=== PATIENT | female | born 1945 | race Caucasian/White ===

== ENCOUNTER 2018-05-01 16:58 | Inpatient (IN) | payer MEDICARE, BC ==
[2018-05-01] MEDS ORDERED: Morphine 2 MG/ML Syringe IVPUSH PRN (17:38)
[2018-05-01] MEDS ORDERED: Sodium Chloride 0.9% 10 ML Syringe FLUSH PRN (17:38)
[2018-05-01] MEDS ORDERED: Sodium Chloride 0.9% 2.5 ML Syringe FLUSH PRN (17:38)
[2018-05-01] MEDS ORDERED: Albuterol/Ipratropium 3.0-0.5 MG/3 ML Neb Soln NEB PRN (17:38)
[2018-05-01] MEDS: Pantoprazole 40 MG Vial IVPUSH SCH ×2 (18:08→20:52)
[2018-05-01 20:28] LABS: CHLORIDE,CL 104 mmol/L (98-107); SODIUM,NA 138 mmol/L (136-145)
[2018-05-01] MEDS ORDERED: Cyanocobalamin (Vitamin B12) 1,000 MCG/ML SDV SUBCUT ONE (20:54)
[2018-05-01] MEDS ORDERED: Cyanocobalamin (Vitamin B12) 1,000 MCG/ML SDV IM ONE (21:00)
[2018-05-01] MEDS ORDERED: Nitroglycerin 0.2 MG/HR Transdermal Patch TRDERM ONE (21:07)
--- NOTE | 2018-05-01 21:07 | PCM.SN ---
- Free Text/Narrative Note: [id number]
[2018-05-01] MEDS: Ferrous Sulfate Liq 300 MG/5 ML Cup PO SCH (21:34)
--- NOTE | 2018-05-01 22:51 | PCM.CONS ---
H&P History of Present Illness - General Date of Service: 05/01/18 Admit Problem/Dx: Admission Diagnosis/Problem Admission Diagnosis/Problem Anemia Source of Information: Patient History Limitations: Reports: No Limitations - History of Present Illness Initial Comments - Free Text/Narative: Patient is a 72 year old female who presents with severe anemia. She was seen in clinic today by a primary care provider. Lab work was performed that revealed a hgb of 3.5. She was admitted to the hospitalist team and is currently being transfused. She denies any change in her bowel habits. She denies melena or hematochezia. She has chronic GERD and takes omeprazole for this. Her symptoms have been stable. She denies nausea or vomiting. She denies abdominal pain. She does admit to slowly feeling weaker and more SOB with activity over the last couple months. - Related Data Allergies/Adverse Reactions: Allergies Allergy/AdvReac Type Severity Reaction Status Date / Time novacaine Allergy Vomiting Uncoded 12/04/16 14:23 Home Medications: Home Meds PARoxetine [Paxil] 30 mg PO DAILY 12/04/16 [History] Rosuvastatin [Crestor] 20 mg PO DAILY 12/04/16 [History] rOPINIRole [Requip] 1 mg PO BEDTIME 12/04/16 [History] Albuterol [Ventolin HFA] 2 inh IH Q6H PRN 12/05/16 [History] Cephalexin [Keflex] 500 mg PO BID #12 capsule 12/05/16 [Rx] Colestipol [Colestipol HCl] 2 gm PO DAILY PRN 12/05/16 [History] Fluticasone Propionate [Flonase] 1 gm NASBOTH DAILY #1 bottle 12/05/16 [Rx] Fluticasone/Salmeterol [Advair 250-50 Diskus] 1 inh IH BID PRN 12/05/16 [History ] LORazepam [Ativan] 0.25 mg PO BID PRN #5 tablet 12/05/16 [Rx] Latanoprost [Xalatan 0.005% Ophth Soln] 1 drop EYEBOTH BEDTIME 12/05/16 [History ] Ursodiol [Actigal] 300 mg PO DAILY PRN 12/05/16 [History] Past Medical History HEENT History: Reports: Impaired Vision, Macular Degeneration Cardiovascular History: Reports: High Cholesterol, Other (See Below) Other Cardiovascular History: hypotension Respiratory History: Reports: Asthma, Bronchitis, Recurrent, Pneumonia, Recurrent Gastrointestinal History: Reports: Chronic Diarrhea Genitourinary History: Reports: None STARTING [employer] History: Reports: Musculoskeletal History: Reports: Arthritis, Back Pain, Chronic, Fracture, Osteoarthritis, Osteoporosis Neurological History: Reports: Vertigo, Other (See Below) Other Neuro History: panic attacks Psychiatric History: Reports: Anxiety, Panic Attack Endocrine/Metabolic History: Reports: None Hematologic History: Reports: None Immunologic History: Reports: None Oncologic (Cancer) History: Reports: None Dermatologic History: Reports: None - Infectious Disease History Infectious Disease History: Reports: Chicken Pox, Measles, Mumps, Rubella Other Infectious Disease History: wooping cough - Past Surgical History HEENT Surgical History: Reports: Cataract Surgery GI Surgical History: Reports: Colonoscopy, Polypectomy Female Surgical History: Reports: Breast Biopsy, Hysterectomy Social & Family History - Family History Family Medical History: Noncontributory - Tobacco Use Smoking Status *Q: Never Smoker Second Hand Smoke Exposure: No - Caffeine Use Caffeine Use: Reports: Coffee - Recreational Drug Use Recreational Drug Use: No H&P Review of Systems - Review of Systems: Review Of Systems: ROS reveals no pertinent complaints other than HPI. Exam - Exam Exam: See Below - Vital Signs Vital Signs: Last Vital Signs Temp 36.4 C 05/01/18 22:00 Pulse 85 05/01/18 22:00 Resp 18 05/01/18 21:38 BP 123/58 L 05/01/18 22:00 Pulse Ox 97 05/01/18 22:00 Weight: 55.656 kg - Exam General: Alert, Oriented HEENT: Conjunctiva Clear, Mucosa Moist & [place], Posterior Pharynx Clear Neck: Supple, Trachea Midline Lungs: Clear to Auscultation, Normal Respiratory Effort Cardiovascular: Regular Rate, Systolic Murmur GI/Abdominal Exam: Soft, Non-Tender, No Distention, No Mass (Female) Exam: Normal External Exam Rectal (Female) Exam: Normal Exam, Normal Rectal Tone, Heme - Stool. No: Black Stool, Bloody Stool, Decreased Rectal Tone, Fecal Impaction, Mass Back Exam: Normal Inspection, Full Range of Motion Extremities: Normal Inspection, Normal Range of Motion - Patient Data Lab Results Last 24 hrs: Laboratory Results - last 24 hr 05/01/18 05/01/18 05/01/18 Range/Units 17:55 17:55 17:55 WBC 6.44 (4.0-11.0) K/uL RBC 2.40 L (4.30-5.90) M/uL Hgb 3.5 L* (12.0-16.0) g/dL Hct 13.8 L (36.0-46.0) % MCV 57.5 L (80.0-98.0) fL MCH 14.6 L (27.0-32.0) pg MCHC 25.4 L (31.0-37.0) g/dL RDW Std Deviation 41.1 (28.0-62.0) fl RDW Coeff of Tc 19 H (11.0-15.0) % Plt Count 382 (150-400) K/uL MPV 9.40 (7.40-12.00) fL Nucleated RBC % 0.0 /100WBC Nucleated RBCs # 0 K/uL Absolute Retic 31.70 (20-80) K/uL Percent Retic 1.3 (0.5-1.5) % Immature Retic Fraction 15 % Sodium (136-145) mmol/L Potassium (3.5-5.1) mmol/L Chloride (98-107) mmol/L Carbon Dioxide (21.0-32.0) mmol/L BUN (7.0-18.0) mg/dL Creatinine (0.6-1.0) mg/dL Est Cr Clr Drug Dosing mL/min Estimated GFR (MDRD) ml/min Glucose (74-106) mg/dL Calcium (8.5-10.1) mg/dL Iron (50-175) ug/dL TIBC (250-450) ug/dL % Saturation (20-55) % Ferritin (8-252) ng/mL Total Bilirubin (0.2-1.0) mg/dL AST (15-37) IU/L ALT (14-63) IU/L Alkaline Phosphatase (46-116) U/L Troponin I < 0.050 (0.000-0.056) ng/mL Total Protein (6.4-8.2) g/dL Albumin (3.4-5.0) g/dL Globulin (2.0-3.5) g/dL Albumin/Globulin Ratio (1.3-2.8) Vitamin B12 (193-986) pg/mL Folate (8.60-58.90) ng/mL Free T4 (0.76-1.46) ng/dL TSH 3rd Generation (0.36-3.74) uIU/mL Blood Type A POSITIVE Antibody Screen NEGATIVE Crossmatch See Detail 05/01/18 05/01/18 05/01/18 Range/Units 17:55 17:55 17:55 WBC (4.0-11.0) K/uL RBC (4.30-5.90) M/uL Hgb (12.0-16.0) g/dL Hct (36.0-46.0) % MCV (80.0-98.0) fL MCH (27.0-32.0) pg MCHC (31.0-37.0) g/dL RDW Std Deviation (28.0-62.0) fl RDW Coeff of Tc (11.0-15.0) % Plt Count (150-400) K/uL MPV (7.40-12.00) fL Nucleated RBC % /100WBC Nucleated RBCs # K/uL Absolute Retic (20-80) K/uL Percent Retic (0.5-1.5) % Immature Retic Fraction % Sodium 138 (136-145) mmol/L Potassium 3.4 L (3.5-5.1) mmol/L Chloride 104 (98-107) mmol/L Carbon Dioxide 24.8 (21.0-32.0) mmol/L BUN 7 (7.0-18.0) mg/dL Creatinine 0.8 (0.6-1.0) mg/dL Est Cr Clr Drug Dosing 48.80 mL/min Estimated GFR (MDRD) > 60.0 ml/min Glucose 90 (74-106) mg/dL Calcium 8.4 L (8.5-10.1) mg/dL Iron 9 L (50-175) ug/dL TIBC 418 (250-450) ug/dL % Saturation 2.15 L (20-55) % Ferritin 3 L (8-252) ng/mL Total Bilirubin 0.2 (0.2-1.0) mg/dL AST 17 (15-37) IU/L ALT 11 L (14-63) IU/L Alkaline Phosphatase 69 (46-116) U/L Troponin I (0.000-0.056) ng/mL Total Protein 6.4 (6.4-8.2) g/dL Albumin 3.2 L (3.4-5.0) g/dL Globulin 3.2 (2.0-3.5) g/dL Albumin/Globulin Ratio 1.0 L (1.3-2.8) Vitamin B12 302 (193-986) pg/mL Folate 21.60 (8.60-58.90) ng/mL Free T4 0.94 (0.76-1.46) ng/dL TSH 3rd Generation 2.76 (0.36-3.74) uIU/mL Blood Type Antibody Screen Crossmatch Result Diagrams: 05/01/18 17:55 05/01/18 17:55 Jimenez Results Last 24 hrs: Microbiology 05/01/18 22:06 Stool Occult Blood (JIMENEZ) - Final Stool / Feces POSITIVE OCCULT BLOOD Consult PN Assessment/Plan Procedures: Procedures ASSAY OF CK (CPK) (02/16/14) ASSAY OF LACTIC ACID (12/04/16) ASSAY OF LIPASE (05/14/14) ASSAY OF MAGNESIUM (12/04/16) ASSAY OF TROPONIN QUANT (12/04/16) BLOOD CULTURE FOR BACTERIA (12/04/16) CHEST X-RAY 2VW FRONTAL&LATL (12/04/16) COMPLETE CBC W/AUTO DIFF WBC (12/04/16) COMPREHEN METABOLIC PANEL (12/04/16) CONTRAST X-RAY ESOPHAGUS (02/14/15) CREATINE MB FRACTION (02/16/14) CT ABD & PELV W/CONTRAST (05/14/14) CT ANGIOGRAPHY HEAD (12/06/17) CT ANGIOGRAPHY NECK (12/06/17) CT HEAD/BRAIN W/O & W/DYE (12/06/17) CT HEAD/BRAIN W/O DYE (02/16/14) ELECTROCARDIOGRAM TRACING (12/04/16) EMERGENCY DEPT VISIT (12/04/16) EMERGENCY DEPT VISIT (05/14/14) EMERGENCY DEPT VISIT (02/16/14) HYDRATE IV INFUSION ADD-ON (12/04/16) METABOLIC PANEL TOTAL CA (12/06/17) ROUTINE VENIPUNCTURE (12/06/17) THER/PROPH/DIAG INJ IV PUSH (02/16/14) THER/PROPH/DIAG INJ SC/IM (02/16/14) THER/PROPH/DIAG IV INF INIT (12/04/16) TX/PRO/DX INJ NEW DRUG ADDON (12/04/16) TX/PRO/DX INJ SAME DRUG RN CLINICAL DOCUMENTATION SPECIALIST (05/14/14) URINALYSIS AUTO W/SCOPE (12/04/16) URINE CULTURE/COLONY COUNT (12/04/16) X-RAY EXAM OF ABDOMEN (05/14/14) (1) Anemia SNOMED Code(s): 299368824 Code(s): D64.9 - ANEMIA, UNSPECIFIED Current Visit: Yes Problem List Initiated/Reviewed/Updated: Yes Plan: Patient is currently receiving a blood transfusion. She has no evidence of a GI bleed at this time. I did collect a FOBT but grossly her stool appeared normal. I added on an H pylori antigen test. Will see how she responds to her transfusion. I recommend a routine CT abdomen pelvis while inpatient to rule out a source of bleeding (i.e. colonic mass, diverticulitis, ulcer ect.) If she responds well to transfusions and remains stable, can follow up as an outpatient for an EGD and colonoscopy. Will continue to follow. Call with questions.
[2018-05-01] MEDS ORDERED: Iopamidol 755 Mg/ML 100 ML Bottle IVPUSH STA (23:08)
--- NOTE | 2018-05-01 23:32 | HP ---
DATE OF : 1945 PRIMARY CARE PHYSICIAN: None PCP HISTORY OF PRESENT ILLNESS: The patient is a 72-year-old female with a past medical history of osteoporosis, glaucoma, asthma, depression, anxiety, restless legs syndrome, hyperlipidemia, severe headaches secondary to Arnold-Chiari malformation, status post repair, presented to her doctor's office today because she was feeling very weak, and this is going on for the past 8 to 10 months, and is more severe since . The patient has severe vertigo. She also fainted. She denies any blood per rectum or any black stools, no vomiting of red blood . Juan Francisco night , she had vomiting and diarrhea and it was brown. She denies coffee-ground. She has occasionally pain in the abdomen that it is localized mostly in the middle of the abdomen and lower abdomen. Today in the office she was seen by the nurse practitioner, and blood work results came back with a hemoglobin of 4. I was called to direct admit the patient, and the patient called home to come to the hospital. PAST MEDICAL HISTORY: She has arthritis, vertigo, macular degeneration, glaucoma, and she was seen in ER a few times because of pain in the abdomen. ALLERGIES: She is allergic to novocaine, constipation. PAST SURGICAL HISTORY: She had Arnold-Chiari malformation surgery in 1973. She was not allowed to have MRI. She had gallbladder surgery in 1992 and she had hysterectomy. FAMILY HISTORY: She had multiple relatives with cancer. Her daughter of a brain cancer last year and she was 53. Her brother of colon cancer at 63. Mother of cancer in the abdomen. Patient is not sure if it was stomach cancer or colon cancer. SOCIAL HISTORY: She quit smoking in 1983, and she smoked for about 15 years. Alcohol use occasionally. 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 REVIEW OF SYSTEMS: She complains of pain in her body and in her muscles, extream weakness , sob. Otherwise 12 points ROS is negative except as in HPI VITAL SIGNS: At admission, her temperature 98, pulse rate 101, and blood pressure 97/68, and respiratory rate 18, pulse oximetry 100% PHYSICAL EXAMINATION: HEENT: Head is atraumatic, normocephalic. Pupils equally reactive to light. Pallor of the eye conjunctivae. NECK: Supple. No thyromegaly. No lymphadenopathy. HEART: S1 and S2. Regular rate and rate. LUNGS: Clear to auscultation bilaterally. ABDOMEN: Soft, nontender. Positive bowel sounds. It is soft. There is tenderness to palpation in the middle of the abdomen, lower of the abdomen, and also some mild tenderness right upper quadrant. EXTREMITIES: No edema. NEUROLOGIC: The patient is alert, oriented x3. There are no gross focal neurological deficits. skin: pale LABORATORY DATA: Repeat blood work done here show a WBC 6.44, hemoglobin 3.5, hematocrit 13.8, MCV 57.5, RDW 41.1, platelet count 382. Sodium 138, potassium 3.4, chloride 104, carbon dioxide 24.8, BUN 7, creatinine 0.8, estimated creatinine clearance 48.8, glucose 90, calcium 8.4. Iron 9, TIBC 414, percent saturation 2.15, ferritin 3. Total bilirubin 0.2, AST 17, ALT 11, alkaline phosphatase 69. Troponin less than 0.050. Total protein 6.4, albumin 3.2, globulin 3.2, folate 21.6. Vitamin B12 of 302. Free T4 of 0.94. TSH 2.96. EKG showed sinus rate of 89, normal P axis, and repolarization abnormality suggesting ischemia, anterolateral ST depression, T negative in lead 1, aVL, V2, and V6. ASSESSMENT: 1. Severe anemia likely due to chronic blood loss and hemoglobin of 2.5. 2. Iron deficiency. 3. Vitamin B12 deficiency. 4. Ischemic changes on the EKG. 5. Osteoporosis. 6. Depression. 7. Asthma. 8. Severe vertigo. 9. Lightheadedness. 10.Glaucoma. 11.Restless legs syndrome. 12.Hyperlipidemia. PLAN: We will admit the patient to medical telemetry and we will transfuse patient 3 units of blood. We will follow up hemoglobin and hematocrit. We will give the patient Lasix between the transfusion if SOB. For ischemic changes on the EKG, we will give patient Nitro-Bid to anterior chest wall and will monitor the patient in telemetry. We will cycle troponins x3. I have discussed the patient with Surgery ,will need referral to have EGD colonoscopy as outpatient We will order a CT of the abdomen with p.o. and IV contrast to be done after the first unit of blood transfused. We will hold aspirin. For the osteoporosis we will continue patient with calcium and vitamin D b.i.d. For asthma, we will continue patient with Advair Diskus one puff inhaled b.i.d. For severe anemia, iron deficiency, we will put the patient on Protonix 40 mg IV b.i.d. For depression, we will continue patient with paroxetine 30 mg p.o. daily. For headache, we will continue patient with riboflavin 400 mg p.o. daily. For the restless leg syndrome, the patient will be continued on ropinirole 1 mg p.o. daily. For hyperlipidemia, the patient will be continued with rosuvastatin 20 mg p.o. daily. For DVT prophylaxis, we will put patient on SCD. For iron-deficiency anemia, also we will start the patient on iron sulfate 300 mg p.o. t.i.d. KAYLYN / ABDOULAYE /[id number] MTDJohnnie
[2018-05-02 06:24] LABS: CHLORIDE,CL 107 mmol/L (98-107); SODIUM,NA 141 mmol/L (136-145)
[2018-05-02] MEDS: Ferrous Sulfate Liq 300 MG/5 ML Cup PO SCH ×3 (06:36→21:43)
[2018-05-02] MEDS: Pantoprazole 40 MG Vial IVPUSH SCH ×2 (09:53→21:36)
[2018-05-02] MEDS ORDERED: Cyanocobalamin (Vitamin B12) 1,000 MCG/ML SDV IM ONE (10:59)
--- NOTE | 2018-05-02 11:54 | PCM.SN ---
- Free Text/Narrative Note: Patient's CT abdomen/pelvis shows a lesion in the bladder. I reviewed this with our radiologist. He feels the appearance suggests a possible malignancy. She does have moderate diverticuli in the colon. The patient's hemoglobin improved significantly with 3 units of blood. Her fecal occult blood test was positive. She should follow-up with a urologist and can follow-up with me in 2-4 weeks for an outpatient EGD and colonoscopy. She should begin her workup from a urology standpoint first. Please call with any further questions or concerns. Will sign off at this point in time.
--- NOTE | 2018-05-02 14:20 | PCM.PN ---
- General Info Date of Service: 05/02/18 Admission Dx/Problem (Free Text): Patient s/p transfusion 3 units of blood last night , her hemoglobin in am was 8.5.Patient has iron deficiency anemia and was started on iron sulphate 325mg po TID. 2 more units of blood were ordered today. Her Ct of the abdomen and pelvis shows she has a urinary bladder nodule of 1.3 cm Patient is dfeeling better today . Her B12 level in 300 , will supplement B12 with B12 sq 1000 mcg - Review of Systems General: Reports: Weakness HEENT: Reports: No Symptoms Pulmonary: Reports: No Symptoms Cardiovascular: Reports: Dyspnea on Exertion Genitourinary: Reports: No Symptoms Musculoskeletal: Reports: No Symptoms Skin: Reports: No Symptoms Neurological: Reports: No Symptoms Psychiatric: Reports: No Symptoms - Patient Data Vitals - Most Recent: Last Vital Signs Temp 97.6 F 05/02/18 14:14 Pulse 81 05/02/18 14:14 Resp 16 05/02/18 14:14 BP 144/53 H 05/02/18 14:14 Pulse Ox 93 L 05/02/18 14:14 Weight - Most Recent: 122 lb 11.2 oz I&O - Last 24 Hours: Intake & Output 05/01/18 05/02/18 05/02/18 22:59 06:59 14:59 Intake Total 350 895 0 Output Total 400 Balance 350 495 0 Lab Results Last 24 Hours: Laboratory Results - last 24 hr 05/01/18 05/01/18 05/01/18 Range/Units 17:55 17:55 17:55 WBC 6.44 (4.0-11.0) K/uL RBC 2.40 L (4.30-5.90) M/uL Hgb 3.5 L* (12.0-16.0) g/dL Hct 13.8 L (36.0-46.0) % MCV 57.5 L (80.0-98.0) fL MCH 14.6 L (27.0-32.0) pg MCHC 25.4 L (31.0-37.0) g/dL RDW Std Deviation 41.1 (28.0-62.0) fl RDW Coeff of Tc 19 H (11.0-15.0) % Plt Count 382 (150-400) K/uL MPV 9.40 (7.40-12.00) fL Neut % (Auto) (48.0-80.0) % Lymph % (Auto) (16.0-40.0) % Mckenzie % (Auto) (0.0-15.0) % Eos % (Auto) (0.0-7.0) % Baso % (Auto) (0.0-1.5) % Neut # (Auto) (1.4-5.7) K/uL Lymph # (Auto) (0.6-2.4) K/uL Mckenzie # (Auto) (0.0-0.8) K/uL Eos # (Auto) (0.0-0.7) K/uL Baso # (Auto) (0.0-0.1) K/uL Nucleated RBC % 0.0 /100WBC Nucleated RBCs # 0 K/uL Absolute Retic 31.70 (20-80) K/uL Percent Retic 1.3 (0.5-1.5) % Immature Retic Fraction 15 % Sodium (136-145) mmol/L Potassium (3.5-5.1) mmol/L Chloride (98-107) mmol/L Carbon Dioxide (21.0-32.0) mmol/L BUN (7.0-18.0) mg/dL Creatinine (0.6-1.0) mg/dL Est Cr Clr Drug Dosing mL/min Estimated GFR (MDRD) ml/min Glucose (74-106) mg/dL Calcium (8.5-10.1) mg/dL Iron (50-175) ug/dL TIBC (250-450) ug/dL % Saturation (20-55) % Ferritin (8-252) ng/mL Total Bilirubin (0.2-1.0) mg/dL AST (15-37) IU/L ALT (14-63) IU/L Alkaline Phosphatase (46-116) U/L Troponin I < 0.050 (0.000-0.056) ng/mL Total Protein (6.4-8.2) g/dL Albumin (3.4-5.0) g/dL Globulin (2.0-3.5) g/dL Albumin/Globulin Ratio (1.3-2.8) Vitamin B12 (193-986) pg/mL Folate (8.60-58.90) ng/mL Free T4 (0.76-1.46) ng/dL TSH 3rd Generation (0.36-3.74) uIU/mL H. pylori IgG Antibody (NEG) Blood Type A POSITIVE Antibody Screen NEGATIVE Crossmatch See Detail 05/01/18 05/01/18 05/01/18 Range/Units 17:55 17:55 17:55 WBC (4.0-11.0) K/uL RBC (4.30-5.90) M/uL Hgb (12.0-16.0) g/dL Hct (36.0-46.0) % MCV (80.0-98.0) fL MCH (27.0-32.0) pg MCHC (31.0-37.0) g/dL RDW Std Deviation (28.0-62.0) fl RDW Coeff of Tc (11.0-15.0) % Plt Count (150-400) K/uL MPV (7.40-12.00) fL Neut % (Auto) (48.0-80.0) % Lymph % (Auto) (16.0-40.0) % Mckenzie % (Auto) (0.0-15.0) % Eos % (Auto) (0.0-7.0) % Baso % (Auto) (0.0-1.5) % Neut # (Auto) (1.4-5.7) K/uL Lymph # (Auto) (0.6-2.4) K/uL Mckenzie # (Auto) (0.0-0.8) K/uL Eos # (Auto) (0.0-0.7) K/uL Baso # (Auto) (0.0-0.1) K/uL Nucleated RBC % /100WBC Nucleated RBCs # K/uL Absolute Retic (20-80) K/uL Percent Retic (0.5-1.5) % Immature Retic Fraction % Sodium 138 (136-145) mmol/L Potassium 3.4 L (3.5-5.1) mmol/L Chloride 104 (98-107) mmol/L Carbon Dioxide 24.8 (21.0-32.0) mmol/L BUN 7 (7.0-18.0) mg/dL Creatinine 0.8 (0.6-1.0) mg/dL Est Cr Clr Drug Dosing 48.80 mL/min Estimated GFR (MDRD) > 60.0 ml/min Glucose 90 (74-106) mg/dL Calcium 8.4 L (8.5-10.1) mg/dL Iron 9 L (50-175) ug/dL TIBC 418 (250-450) ug/dL % Saturation 2.15 L (20-55) % Ferritin 3 L (8-252) ng/mL Total Bilirubin 0.2 (0.2-1.0) mg/dL AST 17 (15-37) IU/L ALT 11 L (14-63) IU/L Alkaline Phosphatase 69 (46-116) U/L Troponin I (0.000-0.056) ng/mL Total Protein 6.4 (6.4-8.2) g/dL Albumin 3.2 L (3.4-5.0) g/dL Globulin 3.2 (2.0-3.5) g/dL Albumin/Globulin Ratio 1.0 L (1.3-2.8) Vitamin B12 302 (193-986) pg/mL Folate 21.60 (8.60-58.90) ng/mL Free T4 0.94 (0.76-1.46) ng/dL TSH 3rd Generation 2.76 (0.36-3.74) uIU/mL H. pylori IgG Antibody (NEG) Blood Type Antibody Screen Crossmatch 05/01/18 05/01/18 05/02/18 Range/Units 17:55 23:55 05:53 WBC 6.05 (4.0-11.0) K/uL RBC 4.02 L (4.30-5.90) M/uL Hgb 8.5 L (12.0-16.0) g/dL Hct 26.9 L (36.0-46.0) % MCV 66.9 L (80.0-98.0) fL MCH 21.1 L (27.0-32.0) pg MCHC 31.6 (31.0-37.0) g/dL RDW Std Deviation 60.6 (28.0-62.0) fl RDW Coeff of Tc 25 H (11.0-15.0) % Plt Count 281 (150-400) K/uL MPV 9.50 (7.40-12.00) fL Neut % (Auto) 66.8 (48.0-80.0) % Lymph % (Auto) 19.8 (16.0-40.0) % Mckenzie % (Auto) 12.6 (0.0-15.0) % Eos % (Auto) 0.0 (0.0-7.0) % Baso % (Auto) 0.8 (0.0-1.5) % Neut # (Auto) 4.0 (1.4-5.7) K/uL Lymph # (Auto) 1.2 (0.6-2.4) K/uL Mckenzie # (Auto) 0.8 (0.0-0.8) K/uL Eos # (Auto) 0.0 (0.0-0.7) K/uL Baso # (Auto) 0.1 (0.0-0.1) K/uL Nucleated RBC % 0.0 /100WBC Nucleated RBCs # 0 K/uL Absolute Retic (20-80) K/uL Percent Retic (0.5-1.5) % Immature Retic Fraction % Sodium (136-145) mmol/L Potassium (3.5-5.1) mmol/L Chloride (98-107) mmol/L Carbon Dioxide (21.0-32.0) mmol/L BUN (7.0-18.0) mg/dL Creatinine (0.6-1.0) mg/dL Est Cr Clr Drug Dosing mL/min Estimated GFR (MDRD) ml/min Glucose (74-106) mg/dL Calcium (8.5-10.1) mg/dL Iron (50-175) ug/dL TIBC (250-450) ug/dL % Saturation (20-55) % Ferritin (8-252) ng/mL Total Bilirubin (0.2-1.0) mg/dL AST (15-37) IU/L ALT (14-63) IU/L Alkaline Phosphatase (46-116) U/L Troponin I < 0.050 (0.000-0.056) ng/mL Total Protein (6.4-8.2) g/dL Albumin (3.4-5.0) g/dL Globulin (2.0-3.5) g/dL Albumin/Globulin Ratio (1.3-2.8) Vitamin B12 (193-986) pg/mL Folate (8.60-58.90) ng/mL Free T4 (0.76-1.46) ng/dL TSH 3rd Generation (0.36-3.74) uIU/mL H. pylori IgG Antibody NEGATIVE (NEG) Blood Type Antibody Screen Crossmatch 05/02/18 05/02/18 Range/Units 05:53 05:53 WBC (4.0-11.0) K/uL RBC (4.30-5.90) M/uL Hgb (12.0-16.0) g/dL Hct (36.0-46.0) % MCV (80.0-98.0) fL MCH (27.0-32.0) pg MCHC (31.0-37.0) g/dL RDW Std Deviation (28.0-62.0) fl RDW Coeff of Tc (11.0-15.0) % Plt Count (150-400) K/uL MPV (7.40-12.00) fL Neut % (Auto) (48.0-80.0) % Lymph % (Auto) (16.0-40.0) % Mckenzie % (Auto) (0.0-15.0) % Eos % (Auto) (0.0-7.0) % Baso % (Auto) (0.0-1.5) % Neut # (Auto) (1.4-5.7) K/uL Lymph # (Auto) (0.6-2.4) K/uL Mckenzie # (Auto) (0.0-0.8) K/uL Eos # (Auto) (0.0-0.7) K/uL Baso # (Auto) (0.0-0.1) K/uL Nucleated RBC % /100WBC Nucleated RBCs # K/uL Absolute Retic (20-80) K/uL Percent Retic (0.5-1.5) % Immature Retic Fraction % Sodium 141 (136-145) mmol/L Potassium 4.2 (3.5-5.1) mmol/L Chloride 107 (98-107) mmol/L Carbon Dioxide 23.5 (21.0-32.0) mmol/L BUN 6 L (7.0-18.0) mg/dL Creatinine 0.8 (0.6-1.0) mg/dL Est Cr Clr Drug Dosing 48.80 mL/min Estimated GFR (MDRD) > 60.0 ml/min Glucose 97 (74-106) mg/dL Calcium 8.4 L (8.5-10.1) mg/dL Iron (50-175) ug/dL TIBC (250-450) ug/dL % Saturation (20-55) % Ferritin (8-252) ng/mL Total Bilirubin 0.7 (0.2-1.0) mg/dL AST 17 (15-37) IU/L ALT 14 (14-63) IU/L Alkaline Phosphatase 71 (46-116) U/L Troponin I < 0.050 (0.000-0.056) ng/mL Total Protein 6.3 L (6.4-8.2) g/dL Albumin 3.1 L (3.4-5.0) g/dL Globulin 3.2 (2.0-3.5) g/dL Albumin/Globulin Ratio 1.0 L (1.3-2.8) Vitamin B12 (193-986) pg/mL Folate (8.60-58.90) ng/mL Free T4 (0.76-1.46) ng/dL TSH 3rd Generation (0.36-3.74) uIU/mL H. pylori IgG Antibody (NEG) Blood Type Antibody Screen Crossmatch Jimenez Results Last 24 Hours: Microbiology 05/01/18 22:06 Stool Occult Blood (JIMENEZ) - Final Stool / Feces POSITIVE OCCULT BLOOD Med Orders - Current: Current Medications Albuterol/Ipratropium (Duoneb 3.0-0.5 Mg/3 Ml) 3 ml NEB Q4HRRT PRN PRN Reason: Shortness Of Breath/wheezing Ferrous Sulfate (Ferrous Sulfate) 300 mg PO TID [facility] Last Admin: 05/02/18 13:11 Dose: 300 mg Morphine Sulfate (Morphine) 2 mg IVPUSH Q2H PRN PRN Reason: Pain (severe 7-10) Stop: 05/02/18 17:40 Pantoprazole Sodium (Protonix Iv) 40 mg IVPUSH BID [facility] Last Admin: 05/02/18 09:53 Dose: 40 mg Sodium Chloride (Saline Flush) 10 ml FLUSH ASDIRECTED PRN PRN Reason: Keep Vein Open Sodium Chloride (Saline Flush) 2.5 ml FLUSH ASDIRECTED PRN PRN Reason: Keep Vein Open Discontinued Medications Cyanocobalamin (Vitamin B12) 1,000 mcg SUBCUT ONETIME ONE Stop: 05/01/18 20:55 Last Admin: 05/01/18 21:47 Dose: Not Given Cyanocobalamin (Vitamin B12) 1,000 mcg IM ONETIME ONE Stop: 05/01/18 21:01 Last Admin: 05/01/18 22:17 Dose: 1,000 mcg Cyanocobalamin (Vitamin B12) 1,000 mcg IM ONETIME ONE Stop: 05/02/18 11:00 Last Admin: 05/02/18 13:11 Dose: 1,000 mcg Iopamidol (Isovue-370 (76%)) 75 ml IVPUSH ONETIME STA Stop: 05/01/18 23:09 Last Admin: 05/01/18 23:08 Dose: 75 ml Miscellaneous Information (Remove Patch) 1 ea TRDERM ONETIME ONE Stop: 05/02/18 10:01 Last Admin: 05/02/18 09:59 Dose: Not Given Nitroglycerin (Nitro-Dur 0.2 Mg/Hr) 0.2 mg TRDERM ONETIME ONE Stop: 05/01/18 21:08 Last Admin: 05/01/18 21:37 Dose: Not Given - Exam General: Alert, Oriented HEENT: Pupils Equal, Pupils Reactive Neck: Supple Lungs: Clear to Auscultation, Normal Respiratory Effort Cardiovascular: Regular Rate, Regular Rhythm, No Murmurs GI/Abdominal Exam: Normal Bowel Sounds, Soft, Non-Tender Back Exam: Normal Inspection Extremities: Normal Inspection - Problem List & Annotations (1) Iron deficiency anemia due to chronic blood loss SNOMED Code(s): 754042772 Code(s): D50.0 - IRON DEFICIENCY ANEMIA SECONDARY TO BLOOD LOSS (CHRONIC) Status: Acute Current Visit: Yes (2) Mass of urinary bladder SNOMED Code(s): 541834958 Code(s): N32.89 - OTHER SPECIFIED DISORDERS OF BLADDER Status: Acute Current Visit: Yes (3) Weight loss, unintentional SNOMED Code(s): 134542029 Code(s): R63.4 - ABNORMAL WEIGHT LOSS Status: Acute Current Visit: Yes (4) Cardiac ischemia SNOMED Code(s): 013263270 Code(s): I25.9 - CHRONIC ISCHEMIC HEART DISEASE, UNSPECIFIED Status: Acute Current Visit: Yes - Problem List Review Problem List Initiated/Reviewed/Updated: Yes - My Orders Last 24 Hours: My Active Orders 05/01/18 17:38 Patient Status [ADT] Routine Bedrest Bedside Commode [RC] ASDIRECTED Vital Signs [RC] Q4H Albuterol/Ipratropium [DuoNeb 3.0-0.5 MG/3 ML] 3 ml NEB Q4HRRT PRN Morphine 2 mg IVPUSH Q2H PRN Sodium Chloride 0.9% [Saline Flush] 10 ml FLUSH ASDIRECTED PRN Sodium Chloride 0.9% [Saline Flush] 2.5 ml FLUSH ASDIRECTED PRN Peripheral IV Insertion Adult [OM.PC] Routine Resuscitation Status Routine 05/01/18 17:39 Cardiac Monitoring [RC] CONTINUOUS 05/01/18 17:41 RT Aerosol Therapy [RC] ASDIRECTED 05/01/18 17:45 Transfuse Red Blood Cells [COMM] Routine 05/01/18 17:46 Telemetry Monitoring [Cardiac Monitoring] [RC] Q8H 05/01/18 17:55 RED BLOOD CELLS LP [BBK] Routine TYPE AND SCREEN [BBK] Routine 05/01/18 18:00 Pantoprazole [ProTONIX IV] 40 mg IVPUSH BID 05/01/18 20:52 Abdomen Pelvis w wo Cont [CT] Routine 05/01/18 22:00 Ferrous Sulfate 300 mg PO TID 05/01/18 22:06 OCCULT BLOOD DIAGNOSTIC [OP] Routine 05/01/18 Dinner Nothing per Oral Now Diet [DIET] 05/02/18 10:23 Transfuse Red Blood Cells [COMM] Routine 05/02/18 10:57 URINALYSIS W/MICROSCOPIC [UA W/MICROSCOPIC] [URIN] Routine 05/02/18 10:58 Consult to Physician [CONS] Routine 05/02/18 10:59 Notify Provider Consults [RC] ASDIRECTED 05/02/18 11:04 Consult to Physician [CONS] Routine 05/02/18 11:05 Notify Provider Consults [RC] ASDIRECTED 05/03/18 05:11 CBC WITH AUTO DIFF [HEME] AM COMPREHENSIVE METABOLIC PN,CMP [CHEM] AM 05/04/18 05:11 CBC WITH AUTO DIFF [HEME] AM COMPREHENSIVE METABOLIC PN,CMP [CHEM] AM 05/05/18 05:11 CBC WITH AUTO DIFF [HEME] AM COMPREHENSIVE METABOLIC PN,CMP [CHEM] AM 05/06/18 05:11 CBC WITH AUTO DIFF [HEME] AM a/p Severe anemia due to chronic blood loss - will transfuse patient 2 more units of blood, f/up Hb post transfusion Protonix 40 mg iv q 12h, f/up with Dr. Curtis as outpatient for EGD , colonoscopy, H pylori negative start patient on Ferrous sulphate 325 mg po TID Bladder mass- will order UA and I have called Dr. Stewart to consult for cystoscopy and biopsy DVT prof - scd Low B 12 level- will supplement B12 with 1000 mcg B12 sq
--- NOTE | 2018-05-02 16:51 | CT ---
EXAM DATE: 05/01/18 PATIENT'S AGE: 72 Patient: CHITRA GAMEZ Facility: [place], [place] Site . Site : 1945 Study: CT Abdomen/Pelvis W/ and W/O Cont [id number]/19/2018 11:04:15 PM Ordering Physician: Carlo Oro Final Report: INDICATION: Abdominal pain TECHNIQUE: CT Abdomen and pelvis with and without i.v. contrast. Coronal and sagittal reformats were obtained. CONTRAST: 75 mL Isovue 370 COMPARISON: 05/14/2014 FINDINGS: Lower chest: Unremarkable. Liver: Multiple liver cysts are present with the largest measuring 2.5 cm. Spleen: Unremarkable. Pancreas: Unremarkable. Gallbladder: Previous cholecystectomy noted with mild intra and extrahepatic biliary ductal dilatation seen. Kidney: Moderate focal cortical scarring is seen in the upper pole of the left kidney. The right kidney is unremarkable in appearance. Adrenal: Unremarkable. Bowel: Moderate sigmoid diverticulosis is present with no evidence of diverticulitis. The appendix is not visualized. Vascular: Unremarkable. Lymph: Unremarkable. Peritoneum: Unremarkable. No pneumoperitoneum is seen. No significant ascites is noted. Pelvis: There is an enhancing nodule along the right posterior lateral aspect of the bladder measuring 1.3 cm. Soft tissue: Unremarkable. Bone: Unremarkable for age. IMPRESSION: 1. There is an enhancing nodule along the right posterior lateral aspect of the bladder measuring 1.3 cm. Further evaluation with cystoscopy and biopsy is recommended to exclude a bladder neoplasm. Dictated by Saurabh King MD @ 05/01/2018 11:27:33 PM Please note that all CT scans at this facility use dose modulation, iterative reconstruction, and/or weight-based dosing when appropriate to reduce radiation dose to as low as reasonably achievable. Dictated by: Saurabh King MD @ 05/01/2018 23:27:36 (Electronic Signature) Report Signed by Proxy. [facility] CENTERJohnnie
[2018-05-02] MEDS ORDERED: Acetaminophen 325 MG Tab PO PRN (19:49)
[2018-05-03 02:54] LABS: CHLORIDE,CL 107 mmol/L (98-107); SODIUM,NA 141 mmol/L (136-145)
[2018-05-03] MEDS: Ferrous Sulfate Liq 300 MG/5 ML Cup PO SCH (05:17)
[2018-05-03] MEDS ORDERED: Cyanocobalamin (Vitamin B12) 1,000 MCG/ML SDV IM ONE (08:46)
[2018-05-03] MEDS: Pantoprazole 40 MG Vial IVPUSH SCH (09:23)
[2018-05-03 15:29] VITALS: BP 140/52
--- NOTE | 2018-05-03 16:56 | PCM.DCSUM1 ---
Discharge Summary - Hospital Course Diagnosis: Stroke: No - Discharge Data Discharge Date: 05/03/18 Discharge Disposition: Home, Self-Care 01 Condition: Good - Discharge Diagnosis/Problem(s) (1) Iron deficiency anemia due to chronic blood loss SNOMED Code(s): 376951369 ICD Code: D50.0 - IRON DEFICIENCY ANEMIA SECONDARY TO BLOOD LOSS (CHRONIC) Status: Acute (2) Mass of urinary bladder SNOMED Code(s): 274022282 ICD Code: N32.89 - OTHER SPECIFIED DISORDERS OF BLADDER Status: Acute (3) Weight loss, unintentional SNOMED Code(s): 660797449 ICD Code: R63.4 - ABNORMAL WEIGHT LOSS Status: Acute (4) Cardiac ischemia SNOMED Code(s): 686130221 ICD Code: I25.9 - CHRONIC ISCHEMIC HEART DISEASE, UNSPECIFIED Status: Acute - Patient Summary/Data Consults: Consultations 05/02/18 10:58 Consult to Physician [CONS] Routine 05/02/18 11:04 Consult to Physician [CONS] Routine - Patient Instructions Diet: Usual Diet as Tolerated Activity: As Tolerated Driving: May Drive Today - Discharge Plan Prescriptions/Med Rec: Ferrous Sulfate 300 mg PO TID 60 Days #1 cup Pantoprazole [ProTONIX] 40 mg PO DAILY #120 tab.cr Home Medications: Home Meds PARoxetine [Paxil] 30 mg PO DAILY 12/04/16 [History] Rosuvastatin [Crestor] 20 mg PO DAILY 12/04/16 [History] rOPINIRole [Requip] 1 mg PO BEDTIME 12/04/16 [History] Colestipol [Colestipol HCl] 2 gm PO DAILY PRN 12/05/16 [History] Fluticasone Propionate [Flonase] 1 gm NASBOTH DAILY #1 bottle 12/05/16 [Rx] Fluticasone/Salmeterol [Advair 250-50 Diskus] 1 inh IH BID PRN 12/05/16 [History ] LORazepam [Ativan] 0.25 mg PO BID PRN #5 tablet 12/05/16 [Rx] Latanoprost [Xalatan 0.005% Ophth Soln] 1 drop EYEBOTH BEDTIME 12/05/16 [History ] Ursodiol [Actigal] 300 mg PO DAILY PRN 12/05/16 [History] Acetaminophen [Tylenol] 650 mg PO Q4H PRN tablet 05/03/18 [Rx] Albuterol/Ipratropium [DuoNeb 3.0-0.5 MG/3 ML] 3 ml NEB Q4HRRT PRN neb [Rx] Ferrous Sulfate 300 mg PO TID 60 Days #1 cup 05/03/18 [Rx] Pantoprazole [ProTONIX] 40 mg PO DAILY #120 tab.cr 05/03/18 [Rx] Patient Handouts: Anemia, Iron tablets, capsules, extended-release tablets, Pantoprazole tablets Referrals: Leida Curtis MD [Physician] - (1 week appointment) Yoselyn Proctor NP [Primary Care Provider] - (1 week appointment) Philip Ray MD [Physician] - (1 week appointment) - Patient Data Vitals - Most Recent: Last Vital Signs Temp 97.2 F 05/03/18 09:00 Pulse 62 05/03/18 09:00 Resp 18 05/03/18 09:00 BP 140/52 L 05/03/18 09:00 Pulse Ox 95 05/03/18 09:00 Weight - Most Recent: 122 lb 11.2 oz I&O - Last 24 hours: Intake & Output 05/03/18 05/03/18 05/03/18 06:59 14:59 22:59 Intake Total 387 Balance 387 Lab Results - Last 24 hrs: Laboratory Results - last 24 hr 05/01/18 05/03/18 05/03/18 Range/Units 17:55 02:29 02:29 WBC 7.00 (4.0-11.0) K/uL RBC 5.19 (4.30-5.90) M/uL Hgb 11.4 L (12.0-16.0) g/dL Hct 35.3 L (36.0-46.0) % MCV 68.0 L (80.0-98.0) fL MCH 22.0 L (27.0-32.0) pg MCHC 32.3 (31.0-37.0) g/dL RDW Std Deviation 62.0 (28.0-62.0) fl RDW Coeff of Tc 26 H (11.0-15.0) % Plt Count 227 (150-400) K/uL MPV 9.90 (7.40-12.00) fL Neut % (Auto) 65.1 (48.0-80.0) % Lymph % (Auto) 19.4 (16.0-40.0) % Frontier % (Auto) 11.9 (0.0-15.0) % Eos % (Auto) 2.7 (0.0-7.0) % Baso % (Auto) 0.9 (0.0-1.5) % Neut # (Auto) 4.6 (1.4-5.7) K/uL Lymph # (Auto) 1.4 (0.6-2.4) K/uL Frontier # (Auto) 0.8 (0.0-0.8) K/uL Eos # (Auto) 0.2 (0.0-0.7) K/uL Baso # (Auto) 0.1 (0.0-0.1) K/uL Sodium 141 (136-145) mmol/L Potassium 3.6 (3.5-5.1) mmol/L Chloride 107 (98-107) mmol/L Carbon Dioxide 23.4 (21.0-32.0) mmol/L BUN 4 L (7.0-18.0) mg/dL Creatinine 0.7 (0.6-1.0) mg/dL Est Cr Clr Drug Dosing 55.77 mL/min Estimated GFR (MDRD) > 60.0 ml/min Glucose 92 (74-106) mg/dL Calcium 8.5 (8.5-10.1) mg/dL Total Bilirubin 1.2 H (0.2-1.0) mg/dL AST 20 (15-37) IU/L ALT 14 (14-63) IU/L Alkaline Phosphatase 72 (46-116) U/L Total Protein 6.3 L (6.4-8.2) g/dL Albumin 3.1 L (3.4-5.0) g/dL Globulin 3.2 (2.0-3.5) g/dL Albumin/Globulin Ratio 1.0 L (1.3-2.8) Blood Type A POSITIVE Antibody Screen NEGATIVE Crossmatch See Detail Med Orders - Current: Current Medications Acetaminophen (Tylenol) 650 mg PO Q4H PRN PRN Reason: Headache Last Admin: 05/02/18 21:41 Dose: 650 mg Albuterol/Ipratropium (Duoneb 3.0-0.5 Mg/3 Ml) 3 ml NEB Q4HRRT PRN PRN Reason: Shortness Of Breath/wheezing Ferrous Sulfate (Ferrous Sulfate) 300 mg PO TID [facility] Last Admin: 05/03/18 05:17 Dose: 300 mg Pantoprazole Sodium (Protonix Iv) 40 mg IVPUSH BID [facility] Last Admin: 05/03/18 09:23 Dose: 40 mg Sodium Chloride (Saline Flush) 10 ml FLUSH ASDIRECTED PRN PRN Reason: Keep Vein Open Sodium Chloride (Saline Flush) 2.5 ml FLUSH ASDIRECTED PRN PRN Reason: Keep Vein Open Discontinued Medications Cyanocobalamin (Vitamin B12) 1,000 mcg SUBCUT ONETIME ONE Stop: 05/01/18 20:55 Last Admin: 05/01/18 21:47 Dose: Not Given Cyanocobalamin (Vitamin B12) 1,000 mcg IM ONETIME ONE Stop: 05/01/18 21:01 Last Admin: 05/01/18 22:17 Dose: 1,000 mcg Cyanocobalamin (Vitamin B12) 1,000 mcg IM ONETIME ONE Stop: 05/02/18 11:00 Last Admin: 05/02/18 13:11 Dose: 1,000 mcg Cyanocobalamin (Vitamin B12) 1,000 mcg IM ONETIME ONE Stop: 05/03/18 08:47 Last Admin: 05/03/18 09:24 Dose: 1,000 mcg Iopamidol (Isovue-370 (76%)) 75 ml IVPUSH ONETIME STA Stop: 05/01/18 23:09 Last Admin: 05/01/18 23:08 Dose: 75 ml Miscellaneous Information (Remove Patch) 1 ea TRDERM ONETIME ONE Stop: 05/02/18 10:01 Last Admin: 05/02/18 09:59 Dose: Not Given Morphine Sulfate (Morphine) 2 mg IVPUSH Q2H PRN PRN Reason: Pain (severe 7-10) Stop: 05/02/18 17:40 Nitroglycerin (Nitro-Dur 0.2 Mg/Hr) 0.2 mg TRDERM ONETIME ONE Stop: 05/01/18 21:08 Last Admin: 05/01/18 21:37 Dose: Not Given
== END 2018-05-03 12:20 | disposition home or self-care (01) | DRG 812 ==
LOC: MW.MS 16:58
PROVIDERS: ADMIT Internal Medicine; ATTEND Internal Medicine
PROC: 30233N1 Transfusion of Nonautologous Red Blood Cells into Peripheral Vein, Percutaneous Approach (ICD-10-PCS; principal; 2018-05-01)
DX: D50.0 Iron deficiency anemia secondary to blood loss (chronic) (principal); N32.9 Bladder disorder, unspecified; R63.4 Abnormal weight loss; I25.9 Chronic ischemic heart disease, unspecified; M81.0 Age-related osteoporosis without current pathological fracture; H40.9 Unspecified glaucoma; J45.909 Unspecified asthma, uncomplicated; F41.9 Anxiety disorder, unspecified; F32.9 Major depressive disorder, single episode, unspecified; G25.81 Restless legs syndrome; E78.5 Hyperlipidemia, unspecified; M19.90 Unspecified osteoarthritis, unspecified site; R42 Dizziness and giddiness; H35.30 Unspecified macular degeneration; E53.8 Deficiency of other specified B group vitamins; K21.9 Gastro-esophageal reflux disease without esophagitis; H54.7 Unspecified visual loss; E78.00 Pure hypercholesterolemia, unspecified; K52.9 Noninfective gastroenteritis and colitis, unspecified; G89.29 Other chronic pain; M54.9 Dorsalgia, unspecified; K57.30 Diverticulosis of large intestine without perforation or abscess without bleeding; Z86.010 Personal history of colon polyps; Z88.6 Allergy status to analgesic agent; Z90.710 Acquired absence of both cervix and uterus; Z87.891 Personal history of nicotine dependence; Z79.899 Other long term (current) drug therapy; Z87.01 Personal history of pneumonia (recurrent)
CPT/HCPCS: 36415; 36430; 74178; 74178-26; 80053; 82272; 82607; 82728; 82746; 83550; 84439; 84443; 84484; 85025; 85027; 85045; 86677; 86850; 86900; 86901; 86920; 86921; 86922; 93005; A9270-GY; C9113; J3420; P9016; Q9967

== ENCOUNTER 2018-05-29 07:51 | Day surgery (SDC) | payer MEDICARE, BC ==
[~2018-05-29 07:51] MED LIST: Lactated Ringers 1,000 ML IV SCH; Sodium Chloride 0.9% 10 ML Syringe FLUSH PRN; Sodium Chloride 0.9% 2.5 ML Syringe FLUSH PRN
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
[2018-05-29] MEDS ORDERED: Propofol 200 MG/20 ML SDV ONE ×2 (09:00)
[2018-05-29] MEDS ORDERED: Midazolam 1 MG/ML 2 ML SDV ONE (09:01)
[2018-05-29] MEDS ORDERED: fentaNYL 100 MCG/2 ML SDV ONE (09:01)
--- NOTE | 2018-05-29 10:02 | PCM.OPNOTE ---
- General Post-Op/Procedure Note Date of Surgery/Procedure: 05/29/18 Operative Procedure(s): Diagnostic EGD and colonoscopy Findings: Inumerous hyperplastic polyps in body and fundus of stomach, gastritis, cecal polyp, sigmoid colon polyp Pre Op Diagnosis: GI bleed Post-Op Diagnosis: Cecal polyp, sigmoid colon polyp, gastritis, gastric polyps Anesthesia Technique: [facility] [place] Primary Surgeon: Leida Curtis Condition: Good
[2018-05-29 10:41] VITALS: BP 135/62
--- NOTE | 2018-05-29 13:24 | OR ---
SURGEON: PUNEET SHARMA MD DATE OF PROCEDURE: 05/29/2018 PREOPERATIVE DIAGNOSIS: Gastrointestinal bleed. POSTOPERATIVE DIAGNOSES: 1. Gastritis. 2. Gastric polyps. 3. Diverticulosis. 4. Cecal polyp. 5. Sigmoid colon polyp. PROCEDURES PERFORMED: Diagnostic esophagogastroduodenoscopy and colonoscopy. ANESTHESIA: Monitored anesthesia care. INSTRUMENT USED: Olympus endoscope and colonoscope. EXTENT OF EXAM: To the second portion of duodenum, to the cecum. PREPARATION: Good. LIMITATIONS: None. INDICATION FOR EXAMINATION: The patient is a 72-year-old female, who was recently admitted to the hospital with a hemoglobin of 3.5. She was transfused 4 units of blood with a good improvement in her hemoglobin. Fecal occult blood test was performed, which was positive. We discussed the need for diagnostic EGD and colonoscopy. We discussed the procedure, expected perioperative course, and risks including bleeding, infection, or damage to surrounding structures including perforation. The patient verbalized understanding and wishes to proceed. PROCEDURE IN DETAIL: The patient was brought into the endoscopy suite and placed in a beach chair position. A time-out was completed verifying the patient's name, age, date of , allergies, and procedure to be performed. Monitored anesthesia care was induced and a bite block was placed in the patient's mouth. Continuous oxygen was provided via nasal cannula throughout the case. After adequate sedation was achieved, a well lubricated endoscope was placed in the patient's mouth and advanced under direct visualization to the level of second portion of duodenum. This appeared normal and a photograph was taken. The scope was then fully withdrawn while examining the color, texture, anatomy, and integrity of the mucosa of the upper GI tract. Duodenum was free of pathology. The scope was then brought into the stomach. A photograph was taken of the pylorus as well as the GE junction. These appeared structurally normal. The body and fundus of the stomach were covered with innumerable small polyps, these all appeared hyperplastic. Biopsies were taken. There was no evidence of ulceration; however, the patient did have diffuse gastritis, especially apparent in the antrum. Biopsies were taken of the gastric antrum, body, and fundus and sent for histologic review and H. pylori testing. The scope was then brought into the distal esophagus. This appeared normal and a photograph was taken. The remainder of the esophageal mucosa was free of inflammation or ulceration. The scope was then removed and this portion of procedure terminated. The patient was placed into a left lateral decubitus position. A digital rectal exam was performed. This exam was within normal limits. A well lubricated colonoscope was inserted in the rectum and advanced under direct visualization to the level of cecum. The cecum was identified by both visual and anatomic landmarks. A photograph was taken of the cecal cap; however, I was unable to retroflex the scope within the cecum due to looping of the scope more proximally. The scope was then fully withdrawn while examining the color, texture, anatomy, and integrity of the mucosa from the cecum to the anal canal. The patient had a 2 to 3 mm raised polyp in the cecal cap, this was removed using a cold biopsy forceps. In the sigmoid colon, the patient was noted to have diverticulosis. There was also a 2 to 3 mm sessile polyp in the very distal sigmoid colon. This was removed using cold biopsy forceps. The scope was then brought in the rectum and retroflexed to allow visualization of the anal canal opening. This appeared normal and a photograph was taken. The scope was then straightened out and fully withdrawn. The cecum to anus time was greater than 20 minutes. The patient tolerated the procedure well and transferred to the PACU in stable condition. ENDOSCOPIC DIAGNOSES: 1. Gastritis. 2. Gastric polyps. 3. Diverticulosis. 4. Cecal polyp. 5. Sigmoid colon polyp. RECOMMENDATIONS: Follow up in clinic in 2 weeks, and the patient should continue to take pantoprazole. DALE STANFORD /[id number]
== END 2018-05-29 11:03 | disposition home or self-care (01) ==
LOC: MW.SDS 07:51
PROVIDERS: ATTEND Surgery
DX: K31.7 Polyp of stomach and duodenum (principal); D12.0 Benign neoplasm of cecum; D12.5 Benign neoplasm of sigmoid colon; K57.30 Diverticulosis of large intestine without perforation or abscess without bleeding; J44.9 Chronic obstructive pulmonary disease, unspecified; K50.90 Crohn's disease, unspecified, without complications; F41.9 Anxiety disorder, unspecified; F32.9 Major depressive disorder, single episode, unspecified; M19.90 Unspecified osteoarthritis, unspecified site; K21.9 Gastro-esophageal reflux disease without esophagitis; E78.00 Pure hypercholesterolemia, unspecified; Z87.891 Personal history of nicotine dependence; Z88.5 Allergy status to narcotic agent; Z88.6 Allergy status to analgesic agent; Z88.8 Allergy status to other drugs, medicaments and biological substances; Z88.4 Allergy status to anesthetic agent; Z88.2 Allergy status to sulfonamides; Z79.82 Long term (current) use of aspirin; Z79.899 Other long term (current) drug therapy
CPT/HCPCS: 43239; 45380; 88305; 88312; J2250; J2704; J3010; J7120; 00813

== ENCOUNTER 2020-10-28 18:33 | Emergency (ER) | payer MEDICARE, BC ==
[2020-10-28] MEDS ORDERED: Sodium Chloride 0.9% 2.5 ML Syringe FLUSH PRN (19:24)
[2020-10-28] MEDS ORDERED: Sodium Chloride 0.9% 10 ML SDV IV PRN (19:24)
[2020-10-28] MEDS ORDERED: Sodium Chloride 0.9% 10 ML Syringe FLUSH PRN (19:24)
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
[2020-10-28 20:03] LABS: BLOOD UREA NITROGEN,BUN 9 mg/dL (7.0-18.0); CARBON DIOXIDE,CO2 17.2 mmol/L (21.0-32.0); CHLORIDE,CL 102 mmol/L (98-107); GLUCOSE RANDOM 105 mg/dL (74-106); POTASSIUM,K 3.1 mmol/L (3.5-5.1); SODIUM,NA 139 mmol/L (136-145)
--- NOTE | 2020-10-28 20:04 | CR ---
INDICATION: Stroke code TECHNIQUE: Chest 1 views COMPARISON: December 04, 2016 FINDINGS: Cardiovascular and mediastinum: Heart size and vasculature are normal in caliber and appearance. Lungs and pleural spaces: Lungs are clear. No sign of infiltrate or mass. No sign of pleural effusion. No pneumothorax. Bones and soft tissues: No significant findings. IMPRESSION: No acute findings and no significant changes from the prior exam. Dictated by El Stacy MD @ Oct 28 2020 8:01PM Signed by Dr. El Stacy @ Oct 28 2020 8:02PM
--- NOTE | 2020-10-28 20:07 | CT ---
Indication: Stroke Technique: Nonenhanced axial CT imaging through the head. Sagittal and coronal reconstructions are provided. Comparison: None Findings: There is no intracranial hemorrhage, edema, or mass effect. Gomez-white matter differentiation is preserved. Benign globus pallidus calcification is noted bilaterally. Mild patchy hypoattenuation of the cerebral white matter most likely reflects chronic microvascular ischemic change. There is normal size of the ventricles. The basal cisterns are patent. There is changes of old suboccipital craniectomy. The mastoid air cells are aerated. Mucosal thickening with fluid and aerated secretions are noted in the maxillary sinuses and ethmoid air cells. Impression: 1. No intracranial hemorrhage or loss of gomez-white matter differentiation. 2. Mucosal thickening with fluid and aerated secretions in the maxillary and ethmoid sinuses. Correlate clinically for acute sinusitis. Please note that all CT scans at this facility use dose modulation, iterative reconstruction, and/or weight-based dosing when appropriate to reduce radiation dose to as low as reasonably achievable. Dictated by Suraj Bennett MD @ Oct 28 2020 8:00PM Signed by Dr. Suraj Bennett @ Oct 28 2020 8:05PM
--- NOTE | 2020-10-28 20:08 | CT ---
DATE: 10/28/2020 CLINICAL HISTORY: Patient with focal neurological deficits TECHNIQUE: Standard helical CT image acquisition through the head and neck was performed after intravenous contrast bolus enhancement. Multiplanar reconstructed images were performed and interpreted. COMPARISON: CT same day. FINDINGS: Images are degraded by patient motion. There is no proximal intracranial large vessel occlusion. There is mild diffuse intracranial atherosclerosis. The origins of the great vessels from the aortic arch are patent. The origin of the right vertebral artery is patent. The origin of the left vertebral artery demonstrates mild narrowing. The common carotid arteries are patent There is a focal severe (70%) stenosis at the origin of the right internal carotid artery by NASCET criteria. This is caused by calcified plaque with a 1mm residual lumen. There is a mild (<50%) stenosis at the origin of the left internal carotid artery by NASCET criteria. This is caused by calcified plaque with a <2mm residual lumen. The rest of the cervical segments of the internal carotid arteries are patent up to their intracranial segments. The intracranial segments of the internal carotid arteries are patent. The left vertebral artery is dominant. The cervical segments of the vertebral arteries are patent. The intracranial segments of the vertebral arteries are patent. The visualized lung apices are unremarkable The thyroid gland is unremarkable. The soft tissues of the neck are unremarkable. There are degenerative changes in the cervical spine. IMPRESSION: 1. No proximal intracranial large vessel occlusion. 2. Focal severe (70%) stenosis at the origin of the right internal carotid artery by NASCET criteria caused by calcified plaque with a 1mm residual lumen. Please note that all CT scans at this facility use dose modulation, iterative reconstruction, and/or weight-based dosing when appropriate to reduce radiation dose to as low as reasonably achievable. Dictated by Poonam Oliveros MD @ Oct 28 2020 11:56PM Signed by Dr. Poonam Oliveros @ Oct 29 2020 12:06AM
[2020-10-28] MEDS ORDERED: Ondansetron 4 MG/2 ML SDV ONE (20:11)
[2020-10-28] MEDS ORDERED: Ondansetron 4 MG/2 ML SDV IVPUSH ONE (20:15)
[2020-10-28] MEDS ORDERED: ALTEPLASE IV ONE (20:17)
[2020-10-28] MEDS ORDERED: SODIUM CHLORIDE 0.9% IV ONE (20:17)
[2020-10-28] MEDS ORDERED: Sodium Chloride 0.9% 500 ML IV STA (20:59)
[2020-10-28 21:52] VITALS: BP 110/70; PULSE 78
== END 2020-10-28 21:35 ==
LOC: MW.ED 18:33
DX: I63.9 Cerebral infarction, unspecified (principal); R47.01 Aphasia; R29.703 NIHSS score 3; E78.00 Pure hypercholesterolemia, unspecified; J44.9 Chronic obstructive pulmonary disease, unspecified; K21.9 Gastro-esophageal reflux disease without esophagitis; M19.90 Unspecified osteoarthritis, unspecified site; Z88.8 Allergy status to other drugs, medicaments and biological substances; Z79.899 Other long term (current) drug therapy; Z88.5 Allergy status to narcotic agent; Z88.6 Allergy status to analgesic agent; Z88.2 Allergy status to sulfonamides; Z88.1 Allergy status to other antibiotic agents; Z88.4 Allergy status to anesthetic agent; Z20.822 Contact with and (suspected) exposure to COVID-19; Z79.82 Long term (current) use of aspirin
CPT/HCPCS: 36415; 51702; 70450; 70496; 70498; 71045; 80053; 81001; 84443; 84484; 85025; 85610; 85730; 93005; 96365; 96375; 99285; J2405; J2997; J7040; U0002